=== PATIENT | female | born 1965 | race Caucasian/White ===

== ENCOUNTER 2023-04-22 21:27 | Emergency (ER) | payer MEDICARE, SELFPAY ==
[2023-04-22 21:31] VITALS: BP 137/74; PULSE 61; RESP 12; TEMP 36.1; O2SAT 97; BMI 33.5
--- NOTE | 2023-04-22 21:55 | EKG12_ITS ---
Test Reason : DYSRHYTHMIA Blood Pressure : / mmHG Vent. Rate : 050 BPM Atrial Rate : 050 BPM P-R Int : 158 ms QRS Dur : 078 ms QT Int : 518 ms P-R-T Axes : 025 020 039 degrees QTc Int : 472 ms Sinus bradycardia Low voltage QRS Nonspecific ST abnormality Abnormal ECG Confirmed by NIALL LANDRY, MOR ([id number]), dictionary editor KAI DAVISON ([id number]) on 04/23/2023 9:42:55 AM Referred By: BB Confirmed By:MOR TIERNEY MD
--- NOTE | 2023-04-22 21:58 | EX.ED.DYSGE1 ---
HPI <Dr. Cheko Meyer MD - Last Filed: 04/22/23 23:56> History of Present Illness Chief Complaint: Syncope Informant: patient, family (daughter) and EMS Narrative Narrative: Patient presents just after a syncopal episode. She had been standing outside for a little while smoking a cigarette after dinner, she then was coming around the front of a vehicle to get into it with her daughter, she suddenly felt lightheaded and got worse and she collapsed without any other prodromal symptoms including dyspnea, chest discomfort, focal neurologic symptoms, hitting her head on the pavement that her daughter said she could hear from around the other side of the vehicle, and she was unconscious for short period of time till waking up, EMS was called. Daughter states that she look like while she was unconscious she had a mild facial droop to 1 side but then when she was awake it resolved. Patient has a history of atrial fibrillation that sounds paroxysmal. She states she knows when she goes into it, and she did not feel any of that today. She did feel it yesterday morning, which prompted her to take her sotalol correctly, twice a day. She states for the last month in order to save money she has been taking it only before bedtime. Additionally she is supposed to be taking Xarelto and she states it is too expensive so she does not take that one at all. [facility] <Dr. Cheko Meyer MD - Last Filed: 04/22/23 23:56> [facility] Medical History Afib Asthma COPD (chronic obstructive pulmonary disease) Heart attack High cholesterol HTN (hypertension) Home Medications aspirin 81 mg chewable tablet (Bebo Chewable Low Dose Aspirin) 1 tab PO DAILY 04/22/23 [History Last Taken Unknown] atorvastatin 80 mg tablet 80 mg PO DAILY 04/22/23 [History Last Taken Unknown] buspirone 30 mg tablet 30 mg PO DAILY 04/22/23 [History Last Taken Unknown] cyanocobalamin (vitamin B-12) 2,500 mcg sublingual tablet (Vitamin B-12) 2,500 mcg PO DAILY 04/22/23 [History Last Taken Unknown] ferrous fumarate 325 mg (106 mg iron) tablet ([employer]) 325 mg PO DAILY 04/22/23 [History Last Taken Unknown] folic acid 1 mg tablet 1 mg PO DAILY 04/22/23 [History Last Taken Unknown] lisinopril 10 mg tablet 10 mg PO DAILY 04/22/23 [History Last Taken Unknown] omeprazole 40 mg capsule,delayed release 40 mg PO DAILY 04/22/23 [History Last Taken Unknown] rivaroxaban 20 mg tablet (Xarelto) 20 mg PO DAILY 04/22/23 [History Last Taken Unknown] suvorexant PO DAILY 04/22/23 [History Last Taken Unknown] Allergy/AdvReac Type Severity Reaction Status Date / Time meperidine [From Demerol] Allergy Other Verified 04/22/23 21:33 sumatriptan [From Imitrex] Allergy Chest Verified 04/22/23 21:33 tightness Surgical History H/O shoulder replacement Social History Smoking Status: Current every day smoker tobacco type: cigarettes ROS <Dr. Cheko Meyer MD - Last Filed: 04/22/23 23:56> ROS ED Constitutional Constitutional ED: Denies chills or fever(s) Eyes Eyes: Denies change in vision or diplopia ENT ENT ED: Denies rhinorrhea or sore throat Cardiovascular Cardiovascular: Reports lightheadedness and syncope; Denies chest pain or palpitations Respiratory/Chest Respiratory/Chest: Denies cough or dyspnea Gastrointestinal Gastrointestinal: Denies abdominal pain, diarrhea, nausea or vomiting Genitourinary Genitourinary ED: Denies dysuria or hematuria Musculoskeletal Musculoskeletal: Denies back pain or neck pain Integumentary Denies abscess or rash Neurologic Neurologic: Denies headache(s), paresthesias or weakness Psychiatric Psychiatric: Denies anxiety or suicidal thoughts EXAM <Dr. Cheko Meyer MD - Last Filed: 04/22/23 23:56> Physical Exam Const Vital Signs: 04/22/23 21:31 04/22/23 21:34 04/23/23 00:40 Temperature 97 F L Temperature Source Temporal Pulse Rate 61 47 L Respiratory Rate 12 19 H Respiratory Effort Normal Non-Labored Blood Pressure 137/74 H 136/71 H Blood Pressure Mean 95 92 Pulse Ox 97 Oxygen Delivery Method Room Air Room Air Positive well nourished and well developed General Appearance ED: well developed and NAD HEENT Reports TM's clear and moist mucous membranes HEENT Narrative: No CSF otorhinorrhea. No carvajal sign. No periorbital ecchymosis or signs of facial trauma. normocephalic and atraumatic Tympanic Membrane ED: Yes TM's clear Eyes PERRL and EOMs intact bilaterally Neck full ROM and supple General: Negative for tenderness Chest Wall inspection of chest normal and palpation of chest normal Resp normal respiratory effort and clear to auscultation bilaterally Cardio regular rate, regular rhythm and no murmurs GI non-tender and non-distended Auscultation: normoactive bowel sounds Palpation: soft Back/Spine no CVA tenderness General Back: other FROM Extremity normal to inspection Extremity Narrative: FROM throughout all 4 ext's w/o pain. General Extremety ED: Negative for edema, pulses abnormal or tenderness General Extremity: Negative for edema or pulses abnormal Neuro oriented x3, CN's II-XII intact bilaterally and no sensory deficits noted Sensorium / Orientation: awake and alert Motor Exam: strength 5/5 throughout Psych mental status grossly normal Skin no rashes or lesions noted and no wounds <Dr. Galileo Mendez DO - Last Filed: 04/23/23 01:05> Physical Exam Const Vital Signs: 04/22/23 21:31 04/22/23 21:34 04/23/23 00:40 Temperature 97 F L Temperature Source Temporal Pulse Rate 61 47 L Respiratory Rate 12 19 H Respiratory Effort Normal Non-Labored Blood Pressure 137/74 H 136/71 H Blood Pressure Mean 95 92 Pulse Ox 97 Oxygen Delivery Method Room Air Room Air [facility] <Dr. Cheko Meyer MD - Last Filed: 04/22/23 23:56> [facility] Narrative Medical decision making narrative: I did not think the patient was likely to have had a very minor focal neurologic deficit while she was unconscious that resolved upon becoming conscious if it was not a major [employer] W[employer] insult, but in order to rule out LVO/stroke, I sent her for CT/CTA of the head and neck, in addition to CTA of the chest in order to rule out PE, which the patient is at relatively low risk for given that she has no history of DVT or PE. She does have history of A-fib and is not anticoagulated but this does not necessarily put her at risk for pulmonary embolus unless she had a PFO, she does not have a prior echo report available to me. Other than prerenal azotemia consistent with the patient saying that she did drink much in the way of fluids today, her labs are unremarkable including troponin of 8, her EKG showed sinus bradycardia but was otherwise normal. She is on no AV ho blockers. Certainly is conceivable that she had a vasovagal episode. At this time CT imaging is pending, I did review the images and I do not see any evidence of acute disease. Patient is ambulatory to and from the restroom from her room without any symptoms or issues. If negative, I anticipate discharge home with close outpatient follow-up. Lab Data Attestation: I reviewed the patient's lab results. Labs: Laboratory Results - last 24 hr 04/22/23 04/23/23 22:18 00:37 WBC 8.7 RBC 4.52 Hgb 14.2 Hct 43.8 MCV 96.9 MCH 31.4 MCHC 32.4 RDW Std Deviation 48.4 H RDW Coeff of Merissa 13.6 Plt Count 225 MPV 10.0 Immature Gran % (Auto) 0.200 Neut % (Auto) 61.5 Lymph % (Auto) 24.5 [place] % (Auto) 10.9 H Eos % (Auto) 2.4 Baso % (Auto) 0.5 Absolute Neuts (auto) 5.3 Absolute Lymphs (auto) 2.13 Nucleated RBC % 0 Sodium 141 Potassium 3.7 Chloride 109 H Carbon Dioxide 29.0 Anion Gap 3 L BUN 23 H Creatinine 0.93 Estim Creat Clear Calc 56.24 Est GFR (MDRD) Af Amer 79 Est GFR (MDRD) Non-Af 66 BUN/Creatinine Ratio 24.8 H Glucose 121 H Calcium 9.1 Troponin I High Sens 8 8 Radiography Diagnostic Testing: Clinical Impression(s) from Imaging Studies Chest CTA 04/23/23 00:00 IMPRESSION: No pulmonary embolism. No visualized focal infiltrate. Mild cardiac enlargement, visualized coronary artery disease. Prior left shoulder arthroplasty. Partially visualized Yung-en-Y gastric bypass with distention of the proximal Yung limb and the excluded portion. This is age-indeterminate there are adjacent small lymph nodes. Recommend consideration for bariatric surgery follow up when appropriate. Electronically Signed: Junie Haq MD at 0:34 EDT , Head/Neck CTA 04/23/23 00:00 IMPRESSION: No visualized large vessel occlusion. The noncontrasted portion of the study demonstrates no visualized acute hemorrhage infarct or edema. Nascet criteria normal to mild diameter stenosis of the bilateral internal carotid arteries. Incidental visualization of inhomogeneous appearance of the right greater than left thyroid with dominant nodule right thyroid measuring 1.7 x 1.5 cm for which further evaluation is recommended with ultrasound and thyroid laboratory values when appropriate. Electronically Signed: Junie Haq MD at 0:47 EDT , Rhythm Strip Rhythm Strip: Sinus Rhythm Rate: 62 Ectopy: PAC(s) EKG Initial EKG: Attestation: I personally reviewed and interpreted this EKG as follows: Interpretation: No Acute Injury Pattern and Sinus Bradycardia (50; otherwise nml EKG) <Dr. Galileo Mendez, DO - Last Filed: 04/23/23 01:05> [facility] Lab Data Labs: Laboratory Results - last 24 hr 04/22/23 04/23/23 22:18 00:37 WBC 8.7 RBC 4.52 Hgb 14.2 Hct 43.8 MCV 96.9 MCH 31.4 MCHC 32.4 RDW Std Deviation 48.4 H RDW Coeff of [place]issa 13.6 Plt Count 225 MPV 10.0 Immature Gran % (Auto) 0.200 Neut % (Auto) 61.5 Lymph % (Auto) 24.5 [place] % (Auto) 10.9 H Eos % (Auto) 2.4 Baso % (Auto) 0.5 Absolute Neuts (auto) 5.3 Absolute Lymphs (auto) 2.13 Nucleated RBC % 0 Sodium 141 Potassium 3.7 Chloride 109 H Carbon Dioxide 29.0 Anion Gap 3 L BUN 23 H Creatinine 0.93 Estim Creat Clear Calc 56.24 Est GFR (MDRD) Af Amer 79 Est GFR (MDRD) Non-Af 66 BUN/Creatinine Ratio 24.8 H Glucose 121 H Calcium 9.1 Troponin I High Sens 8 8 Radiography Diagnostic Testing: Clinical Impression(s) from Imaging Studies Chest CTA 04/23/23 00:00 IMPRESSION: No pulmonary embolism. No visualized focal infiltrate. Mild cardiac enlargement, visualized coronary artery disease. Prior left shoulder arthroplasty. Partially visualized Yung-en-Y gastric bypass with distention of the proximal Yung limb and the excluded portion. This is age-indeterminate there are adjacent small lymph nodes. Recommend consideration for bariatric surgery follow up when appropriate. Electronically Signed: Junie Haq MD at 0:34 EDT , Head/Neck CTA 04/23/23 00:00 IMPRESSION: No visualized large vessel occlusion. The noncontrasted portion of the study demonstrates no visualized acute hemorrhage infarct or edema. Nascet criteria normal to mild diameter stenosis of the bilateral internal carotid arteries. Incidental visualization of inhomogeneous appearance of the right greater than left thyroid with dominant nodule right thyroid measuring 1.7 x 1.5 cm for which further evaluation is recommended with ultrasound and thyroid laboratory values when appropriate. Electronically Signed: Junie Haq MD at 0:47 EDT , Treatment and Re-Evaluation :: The patient was signed out to me while awaiting results of the CTA head and neck as well as CTA chest. Imagings of the head and neck revealed no large vessel occlusion signs of ruptured aneurysm or acute bleed. CTA of the chest revealed no acute lung pathology. The patient has been up ambulating without any type of difficulty in the ER and at this time as laboratory studies revealed no clinically significant findings imaging shows no signs of acute bleed stroke or PE and the patient is able to ambulate without difficulty she is otherwise safe for discharge Discharge Plan Triage Chief Complaint: Syncope ED Provider: Cheko Meyer Dx/Rx/DC Orders Clinical Impression: Acute dehydration, Syncope and collapse, Paroxysmal atrial fibrillation Instructions: ED Fainting, Uncertain Cause Prescriptions: No Action atorvastatin 80 mg tablet 80 mg PO DAILY Patient Comments: TAKE 1 TABLET BY MOUTH ONCE DAILY lisinopril 10 mg tablet 10 mg PO DAILY buspirone 30 mg tablet 30 mg PO DAILY Patient Comments: TAKE 1 TABLET BY MOUTH TWICE DAILY cyanocobalamin (vitamin B-12) [Vitamin B-12] 2,500 mcg tablet, sublingual 2,500 mcg PO DAILY Ferretts 325 mg (106 mg iron) tablet 325 mg PO DAILY folic acid 1 mg tablet 1 mg PO DAILY Patient Comments: TAKE 1 TABLET BY MOUTH ONCE DAILY omeprazole 40 mg capsule,delayed release(DR/EC) 40 mg PO DAILY Xarelto 20 mg tablet 20 mg PO DAILY aspirin [Bebo Chewable Aspirin] 81 mg tablet,chewable 1 tab PO DAILY suvorexant [Belsomra] PO DAILY Primary Care Provider: SAKSHI FLOREZ Referrals: [facility] Doctor,Out of [Non-Staff] - As soon as possible Disposition Disposition: Home, Self Care
[2023-04-22] MEDS: 0.9% Normal Saline 1,000 ML 1000 ML IV (22:15)
[2023-04-22 22:26] LABS: Absolute Lymphocyte Count 2.13 X10^3/uL (0.83-4.51); Absolute Neutrophil Count 5.3 X10^3/uL (2.0-7.7); Basophil# 0.04 X10^3/uL; Basophil% 0.5 % (0-1); Eosinophil# 0.21 X10^3/uL; Eosinophils% 2.4 % (0-5); Hematocrit 43.8 % (37-47); Hemoglobin 14.2 g/dL (12.0-15.0); Lymphocyte # 2.13 X10^3/ul (0.83-4.51); Lymphocyte % 24.5 % (19-41); Mean Corp Hgb Conc 32.4 g/dL (32-36); Mean Corpuscular Hgb 31.4 pg (27.0-32.0); Mean Corpuscular Volume 96.9 fL (81-99); Monocyte# 0.95 X10^3/uL; Monocyte% 10.9 % (0-10); NRBC Flagged by Analyzer 0 % (0-5); Neutrophil # 5.33 X10^3/uL (2.7-7.7); Neutrophil % 61.5 % (47-70); Platelet Count 225 K/mm3 (150-450); RBC Distribution Width CV 13.6 % (11.6-14.6); RBC Distribution Width SD 48.4 fl (35.1-43.9); Red Blood Count 4.52 M/mm3 (4.2-5.4); White Blood Count 8.7 K/mm3 (4.4-11.0)
[2023-04-22 23:11] LABS: Anion Gap 3 (5-15); BUN 23 mg/dL (7-18); BUN/Creat Ratio 24.8 RATIO (10-20); Calcium,Total 9.1 mg/dL (8.5-10.1); Chloride 109 mmol/L (98-107); Creatinine, Serum 0.93 mg/dL (0.55-1.02); EST Glomerular Filtration Rate 66 mL/min (>60); Est Glom Filt Rate - Afr Amer 79 mL/min (>60); Estimated Creatinine Clearance 56.24 ml/min; Glucose 121 mg/dL (74-106); Potassium 3.7 mmol/L (3.5-5.1); Sodium Level 141 mmol/L (136-145); Troponin-I HS (w/2H Reflex) 8 pg/mL (3.0-54.0)
--- NOTE | 2023-04-22 23:54 | ED.RN ---
Patient ambulatory to bathroom, gait steady.
--- NOTE | 2023-04-23 | CT_ITS ---
STUDY: CTA CHEST REASON FOR EXAM: Female, 58 years old. Syncope RADIATION DOSAGE (If Supplied By Facility): CTDIvol = ( 21.42 ) mGy, DLP = ( 1008.23 ) mGycm TECHNIQUE: The examination was performed with the intravenous administration of IV 100mL Isovue-370. Post-processing of the angiographic images was performed, with multiplanar reformation and 3D reconstruction. Individualized dose optimization techniques were used for this CT. COMPARISON: None. FINDINGS: Normal enhancement of the main pulmonary artery and right and left pulmonary arteries. Normal enhancement of the bilateral peripheral pulmonary arteries. There is no demonstrated pulmonary embolism. There is partial calcification of the aorta. There is no demonstrated aortic dissection. There is mild cardiac enlargement. This visualized coronary calcification. Normal mediastinum. Normal hilar regions. Normal visualized trachea and bronchi. The lungs are well expanded. Normal pulmonary parenchyma. Normal pleura. Normal chest wall structures. There is a prior left lower eighth rib fracture. There has been a left shoulder arthroplasty. There is degenerative change of the right shoulder joint. There is multilevel degenerative change within the thoracic spine. There is partial visualization would appears to be a Yung-en-Y gastric bypass there are small adjacent lymph nodes measuring up to 7.6 mm.. There is a mildly distended appearance of the excluded portion of the stomach. There is a distended appearance of the proximal aspect of the Yung limb. There is a mildly thickened appearance of the bilateral adrenal glands suggesting hyperplasia. There is a chronic fatty left side diaphragmatic hernia image #[address]/CTA Chest W/WO Contrast IMPRESSION: No pulmonary embolism. No visualized focal infiltrate. Mild cardiac enlargement, visualized coronary artery disease. Prior left shoulder arthroplasty. Partially visualized Yung-en-Y gastric bypass with distention of the proximal Yung limb and the excluded portion. This is age-indeterminate there are adjacent small lymph nodes. Recommend consideration for bariatric surgery follow up when appropriate. Electronically Signed: Junie Haq MD at 0:34 EDT ,
--- NOTE | 2023-04-23 | CT_ITS ---
STUDY: CTA HEAD AND NECK WITH WITHOUT CONTRAST REASON FOR EXAM: Female, 58 years old. Syncope, facial droop RADIATION DOSAGE (If Supplied By Facility): CTDIvol = ( 28.98 ) mGy, DLP = ( 1859.98 ) mGycm TECHNIQUE: CT angiography was performed with a multi-detector CT scanner. Data acquisition was obtained from the skull base through the vertex following intravenous administration of IV 100mL Isovue-370. MIP images were reconstructed from the axial data set. Post-processing of the angiographic images was performed, with multiplanar reformation and 3D reconstruction. Individualized dose optimization techniques were used for this CT. COMPARISON: No relevant priors. FINDINGS: Normal bilateral petrous carotid arteries. There is minimal calcified plaque formation of the right cavernous carotid artery, without a cross-sectional luminal stenosis. There is minimal calcified plaque formation of the left cavernous carotid artery, without a cross-sectional luminal stenosis. Normal right A1 segments of the anterior cerebral artery. Normal left A1 segments of the anterior cerebral artery. Normal intact anterior communicating artery (ACOM). Normal bilateral A2 segments of the anterior cerebral arteries. Normal right M1 and M2 segments of the middle cerebral arteries, with a normal M1 bifurcation. Normal left M1 and M2 segments of the middle cerebral arteries, with a normal M1 bifurcation. Hypoplastic or atretic right posterior communicating artery (PCOM). There is a persistent origin of the left posterior cerebral artery with absence of the posterior communicating artery (PCOM). Normal bilateral vertebral arteries. Normal basilar artery with a normal basilar bifurcation. The visualized bilateral superior cerebellar (SCA) arteries are normal. Normal bilateral P1, P2 and visualized P3 segments of the posterior cerebral arteries. There is no demonstrated aneurysm of the [place]. There is no demonstrated abnormality of the visualized brain. AORTIC ARCH: Heart is partially calcified. Normal origins of the brachiocephalic, left common carotid, and left subclavian arteries. RIGHT CAROTID ARTERIES: Normal right common carotid artery (CCA). There is mild atherosclerotic plaque formation with minimal narrowing of the right carotid bulb. There is mild atherosclerotic plaque formation of the origin of the right internal carotid artery with less than 50% cross sectional diameter stenosis. There is atherosclerotic tortuous elongation of the cervical portion of the right internal carotid artery. Normal origin of the right external carotid artery (ECA). LEFT CAROTID ARTERIES: There is partial calcification of the takeoff of the left common carotid artery. There is mild atherosclerotic plaque formation with minimal narrowing of the left carotid bulb. Normal origin of the left internal carotid (ICA) artery without a hemodynamically significant stenosis. There is atherosclerotic tortuous elongation of the cervical portion of the left internal carotid artery. Normal origin of the left external carotid artery (ECA). VERTEBRAL ARTERIES: Normal bilateral vertebral arteries. There is incidental visualization of a inhomogeneous appearance of the right greater than left thyroid with possible nodule within the right thyroid measuring 1.7 x 1.5 cm. There is visualized degenerative change within the cervical spine. CT/CTA Head AND Neck W/ Contrast IMPRESSION: No visualized large vessel occlusion. The noncontrasted portion of the study demonstrates no visualized acute hemorrhage infarct or edema. Nascet criteria normal to mild diameter stenosis of the bilateral internal carotid arteries. Incidental visualization of inhomogeneous appearance of the right greater than left thyroid with dominant nodule right thyroid measuring 1.7 x 1.5 cm for which further evaluation is recommended with ultrasound and thyroid laboratory values when appropriate. Electronically Signed: Junie Haq MD at 0:47 EDT ,
[2023-04-23 00:22] LABS: Reflex Troponin-HS? (from REC) Y
[2023-04-23 00:40] VITALS: BP 136/71; PULSE 47; RESP 19
[2023-04-23 00:59] LABS: Troponin-I HS 8 pg/mL (3.0-54.0)
[2023-04-23 01:15] VITALS: BP 136/77; PULSE 51; RESP 17; O2SAT 96
== END 2023-04-23 01:16 | disposition home or self-care (01) ==
PROVIDERS: Emergency Provider Emergency Medicine; Visit Provider Emergency Medicine
DX: E86.0 Dehydration (principal); J44.9 Chronic obstructive pulmonary disease, unspecified; I48.0 Paroxysmal atrial fibrillation; F17.210 Nicotine dependence, cigarettes, uncomplicated; I10 Essential (primary) hypertension; E78.00 Pure hypercholesterolemia, unspecified; Z79.82 Long term (current) use of aspirin; Z79.899 Other long term (current) drug therapy
CPT/HCPCS: 70496; 70498; 71275; 80048; 84484; 85025; 93005; 96360; 96361; 99285; J7030; Q9967; A4216